=== PATIENT | male | born 1975 | race Hispanic/Latino ===

== ENCOUNTER 2018-03-08 18:45 | Emergency (ER) | payer OTHER ==
[~2018-03-08] VITALS: Ht 165.1 cm; Wt 82.6 kg
[2018-03-08] MEDS ORDERED: BACTRIM DS1 TAB PO (19:24)
[2018-03-08 19:34] VITALS: BP 120/64
== END 2018-03-08 19:39 | disposition home or self-care (01) | DRG 603 ==
LOC: ED 18:45
DX: L03.115 Cellulitis of right lower limb (principal); R22.42 Localized swelling, mass and lump, left lower limb; M79.661 Pain in right lower leg; R50.9 Fever, unspecified; X58.XXXA Exposure to other specified factors, initial encounter